=== PATIENT | male | born 1950 | race Caucasian/White ===

== ENCOUNTER → 2019-04-26 | Outpatient (CLI) | payer MEDICARE, BC ==
[~2019-04-26] MED LIST: GADOBENATE DIMEGLUMINE 1 ML IV ONE; SODIUM CHLORIDE 0.9% 50ML 50 ML ONE
[2019-04-26 09:58] LABS: CREATININE, SERUM 1.46 mg/dL (0.72-1.25)
--- NOTE | 2019-04-26 13:09 | Diagnostic Imaging Report ---
MRI of the abdomen and pelvis, with and without contrast, 04/26/2019. History: History of bladder cancer, abnormal renal ultrasound. Comparison: Renal ultrasound 03/29/2019. Technique: Multiplanar, multisequence imaging of the abdomen was performed pre- and post-IV administration of gadolinium. Dynamic enhanced images of the kidney were included. Discussion: Abdomen: The renal contours and sizes are normal bilaterally. There is no evidence of focal signal abnormality or an enhancing lesion within the kidneys on any sequence or phase. There is no hydronephrosis or perinephric fat stranding. The ureters are not dilated. The gallbladder, spleen, pancreas, kidneys, and adrenal glands are normal in appearance. The bowel and osseous structures are normal. There is no evidence of adenopathy. Pelvis: There is slight thickening of the posterior superior bladder wall, which measures 8 mm. The prostate and seminal vesicles are unremarkable. There is no evidence of free fluid or adenopathy. IMPRESSION: 1. No renal mass or abnormality. 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 2. Slight superior bladder wall thickening. Signed by: Eb Burnette on 04/26/2019 1:06 PM
== END ==
LOC: MRI 09:04
PROVIDERS: ATTEND Urology
DX: D41.01 Neoplasm of uncertain behavior of right kidney (principal)
CPT/HCPCS: 36415; 72197; 74183; 82565; 84520; A9577